=== PATIENT | male | born 1995 | race Caucasian/White ===

== ENCOUNTER → 2023-02-09 14:34 | Outpatient (CLI) | payer OTHER, SELFPAY ==
--- NOTE | 2023-02-09 14:36 | DI.US.S_ITS ---
PROCEDURE: US SCROTUM INDICATIONS: RIGHT TESTICULAR PAIN TECHNIQUE: Real-time scanning was performed of the scrotum and testicles, with image documentation. Color and pulse Doppler interrogation was performed of both testicles. COMPARISON: None. FINDINGS: Right: Testicle is normal in size at 3.4 x 2.5 x 3.5 cm, and homogenous in echotexture. Epididymis is normal in overall size and morphology. No hydrocele or varicoceles. Overlying scrotal skin is normal in thickness. Left: Testicle is normal in size at 4.5 x 2.6 x 3.1 cm, and homogeneous in echotexture. Epididymis is mildly heterogeneous with an epididymal head cyst measuring 7 x 8 x 9 mm. Small hydrocele. No varicoceles. Overlying scrotal skin is normal in thickness. Doppler: Increased vascularity to the left teste and epididymis. IMPRESSION: Increased vascularity to the left teste and epididymis with small hydrocele, findings are concerning for epididymal orchitis. The right teste is within normal limits. Dictated by: Sonido Fontana M.D. on 02/09/2023 at 15:50 Approved by: Sonido Fontana M.D. on 02/09/2023 at 15:53
== END ==
LOC: US 14:35
PROVIDERS: PCP Physician Assistant; Referring Provider Physician Assistant; Visit Provider Physician Assistant
DX: N50.811 Right testicular pain (principal); N43.3 Hydrocele, unspecified
CPT/HCPCS: 76870